=== PATIENT | male | born 1955 | race Hispanic/Latino ===

== ENCOUNTER 2021-04-27 09:17 | Emergency (ER) | payer OTHER ==
[~2021-04-27] VITALS: Ht 162.6 cm; Wt 70.9 kg
[2021-04-27] MEDS ORDERED: FLONASE ALLERG9.9 ML INH (09:40)
[2021-04-27] MEDS ORDERED: LORATADINE10 MG PO (09:40)
[2021-04-27] MEDS ORDERED: ACETAMINOPHEN 325 MG TAB PO ONE (09:45)
[2021-04-27] MEDS ORDERED: DEXAMETHASONE SOD PHOS 10 MG/1 ML VIAL IM ONE (09:45)
[2021-04-27] MEDS ORDERED: CLONIDINE HCL 0.1 MG TAB PO ONE (09:45)
[2021-04-27] MEDS ORDERED: DEXAMETHASONE SOD PHOS INJ 4 MG/ML SDV ONE (09:49)
[2021-04-27] MEDS ORDERED: CLONIDINE HCL 0.1 MG TAB ONE (09:49)
[2021-04-27] MEDS ORDERED: ACETAMINOPHEN 325 MG TAB ONE (09:56)
== END 2021-04-27 09:55 | disposition home or self-care (01) ==
LOC: FSED 09:29
DX: J02.9 Acute pharyngitis, unspecified (principal); H10.9 Unspecified conjunctivitis; J30.9 Allergic rhinitis, unspecified; Z20.822 Contact with and (suspected) exposure to COVID-19; Z71.89 Other specified counseling
CPT/HCPCS: 83518; 96372; 99283; J1100 ×2